=== PATIENT | male | born 1985 | race Caucasian/White ===

== ENCOUNTER 2018-04-30 12:46 | Emergency (ER) | payer OTHER ==
[2018-04-30] MEDS ORDERED: Lidocaine 2% VISCOUS* 15 ML UDC PO ONE (13:16)
[2018-04-30] MEDS ORDERED: Omeprazole CAP (NF) 20 MG CAP.DR PO ONE (13:16)
[2018-04-30] MEDS ORDERED: Famotidine TAB* 20 MG PO ONE (13:16)
[2018-04-30] MEDS ORDERED: Al Hydrox/Mg Hydrox/Simet LIQ* 30 ML UDC PO ONE (13:16)
--- NOTE | 2018-04-30 13:28 | ED ---
Abdominal Pain/Male - HPI Summary HPI Summary: Patient is a 32 y/o M presenting to ED with complaints of N/V/D and epigastric burning pain onsetting yesterday at 0900. He notes Hx of similar Sx in college when he was "partying a lot". Patient had endoscopy, PMHx of stomach ulcer. Woke up with pain yesterday morning, states that afterwards he vomited. Emesis was red colored, patient notes that he had mac and cheese with ketchup the night before. Three episodes of vomiting yesterday, two episodes today. Patient states that when he sleeps, he will wake up during the night with N/V. No back pain reported. Patient takes ibuprofen. He took ibuprofen and immodium today. He notes marijuana usage and rare alc usage. On triage, pain is rated 5/10, nothing is noted to aggravate/alleviate Sx. Home medications, allergies, and nurse's note is reported. - History of Current Complaint Chief Complaint: EDAbdPain Stated Complaint: ABD PAIN Time Seen by Provider: 04/30/18 13:17 Hx Obtained From: Patient Onset/Duration: Lasting Days - onset yesterday, Still Present Timing: Constant, Lasting Days - onset yesterday Severity Currently: Moderate - 5/10 Pain Intensity: 5 Pain Scale Used: 0-10 Numeric - 5/10 Location: Epigastric Character: Burning Aggravating Factor(s): Nothing Alleviating Factor(s): Nothing Associated Signs And Symptoms: Positive: Nausea, Vomiting, Diarrhea. Negative: Back Pain - Allergies/Home Medications Allergies/Adverse Reactions: Allergies Allergy/AdvReac Type Severity Reaction Status Date / Time No Known Allergies Allergy Verified 04/30/18 13:31 PMH/Surg Hx/FS Hx/Imm Hx GI History: Reports: Hx Ulcer Sensory History: Denies: Hx Legally Blind, Hx Deafness Opthamlomology History: Denies: Hx Legally Blind EENT History: Denies: Hx Deafness Infectious Disease History: No Infectious Disease History: Denies: Traveled Outside the [place] in Last 30 Days - Family History Known Family History: Positive: Diabetes - Social History Alcohol Use: unknown Substance Use Type: Reports: None Smoking Status (MU): Unknown if Ever Smoked Review of Systems Positive: Abdominal Pain, Vomiting, Diarrhea, Nausea Positive: Other - NEGATIVE - BACK PAIN All Other Systems Reviewed And Are Negative: Yes Physical Exam - Summary Physical Exam Summary: Appearance: Well appearing, no pain distress Skin: warm, dry, reflects adequate perfusion Head/face: normal Eyes: EOMI, YASMIN ENT: mucous membranes moist Neck: supple, non-tender Respiratory: CTA, breath sounds present Cardiovascular: RRR, pulses symmetrical Abdomen: soft, mild epigastric discomfort, all else normal Bowel Sounds: present Musculoskeletal: normal, strength/ROM intact Neuro: normal, sensory motor intact, A&Ox3 Triage Information Reviewed: Yes Vital Signs On Initial Exam: Initial Vitals Temp Pulse Resp BP Pulse Ox 97.6 F 62 16 145/85 99 04/30/18 12:51 04/30/18 12:51 04/30/18 12:51 04/30/18 12:51 04/30/18 12:51 Vital Signs Reviewed: Yes Diagnostics - Vital Signs Vital Signs Temp Pulse Resp BP Pulse Ox 04/30/18 12:51 97.6 F 62 16 145/85 99 - Laboratory Lab Statement: Any lab studies that have been ordered have been reviewed, and results considered in the medical decision making process. Abdominal Pain Fem Course/Dx - Course Course Of Treatment: Nurse's notes reviewed. Patient with epigastric discomfort , reflux type symptoms. He was medicated here with improvement. He previously had endoscopy. He will avoid NSAIDs. There is no history of alcohol or caffeine. - Diagnoses Differential Diagnosis/HQI/PQRI: Other - Peptic ulcer disease, gastritis, esophagitis, gallbladder disease Provider Diagnoses: Acute gastritis Discharge - Sign-Out/Discharge Documenting (check all that apply): Patient Departure - discharge - Discharge Plan Condition: Improved Disposition: HOME Prescriptions: Famotidine TAB* [Pepcid 20 MG TAB*] 20 mg PO BID #20 tab Omeprazole CAP (NF) [Prilosec CAP* 20 MG] 20 mg PO SEE INSTRUCTIONS #40 cap. Sucralfate [Carafate] 1 gm PO ACHS #60 tablet Patient Education Materials: Gastritis (ED) Referrals: [facility] [Outside] [facility] [Outside] Mert Cline DO [Doctor of Osteopathy] - Additional Instructions: Avoid ibuprofen, aspirin, Aleve or related medications. Avoid caffeine, alcohol and spicy foods. Return with increased discomfort, vomiting blood or dark substance, dark or black stools, worse or other concerns as discussed. Call to follow-up with the GI doctor and also primary care referral line has been given to you. [facility] can provide follow-up to you within 1-2 days' time. - Billing Disposition and Condition Condition: IMPROVED Disposition: Home - Attestation Statements Document Initiated by Saad: Yes Documenting Scribe: JAY ASHER Provider For Whom Saad is Documenting (Include Credential): MYKEL SHAFFER MD Scribe Attestation: I, JAY ASHER , scribed for MYKEL SHAFFER MD on 04/30/18 at 1758. Scribe Documentation Reviewed: Yes Provider Attestation: The documentation as recorded by the JAY hutchinson accurately reflects the service I personally performed and the decisions made by me, MYKEL SHAFFER MD Status of Scribe Document: Viewed
[2018-04-30 13:41] VITALS: BP 138/91
== END 2018-04-30 13:40 | disposition home or self-care (01) ==
LOC: ED 12:46
DX: K29.00 Acute gastritis without bleeding (principal)
CPT/HCPCS: 99282; A9270-GY